=== PATIENT | male | born 1960 | race Caucasian/White ===

== ENCOUNTER 2017-03-09 04:00 | Inpatient (IN) | payer MEDICAID ==
[~2017-03-09] VITALS: Ht 167.6 cm; Wt 77.1 kg
[2017-03-09 06:56] LABS: CALCIUM 7.6 mg/dL (8.5-10.1); CARBON DIOXIDE 27.3 mmol/L (21-32); CHLORIDE SERUM 105 mmol/L (98-107); CREATININE SERUM 0.8 mg/dL (0.7-1.3); GFR1 > 60 mL/min; GLUCOSE SERUM 97 mg/dL (74-106); POTASSIUM SERUM 3.8 mmol/L (3.5-5.1); SODIUM SERUM 143 mmol/L (136-145)
[2017-03-09 07:03] LABS: AMPHETAMINE QUAL UR NONE DETECTED (NEG <=1000)
[2017-03-09 07:08] LABS: ALBUMIN 3.7 g/dL (3.4-5.0); ALKALINE PHOSPHATASE 89 U/L (46-116); ALT/SGPT 48 U/L (16-63); AST/SGOT 39 U/L (15-37); BILIRUBIN TOTAL 0.3 mg/dL (0.20-1.00); LIPASE 524 IU/L (73-393); TOTAL PROTEIN, SERUM 7.3 g/dL (6.4-8.2)
[2017-03-09 07:10] LABS: BASOPHIL % 0.5 % (0-2); PLATELET COUNT 221 x10^3mcL (130-400); RED CELL DISTRIBUTION WIDTH 13.7 % (11.5-14.5)
[2017-03-09] MEDS ORDERED: MENS MULTIVITAMIN (07:58)
[2017-03-09 08:16] LABS: microscopic required? NO
[2017-03-09 08:24] LABS: MAGNESIUM 2.1 mg/dL (1.8-2.4)
[2017-03-09 08:25] LABS: CHOLESTEROL/HDL RATIO 2.6
[2017-03-09 08:29] LABS: UA SPECIFIC GRAVITY <=1.005 (1.005-1.035); urine erythrocyte NEGATIVE (NEGATIVE)
[2017-03-09 08:30] LABS: T3 TOTAL 0.94 ng/mL
[2017-03-09 08:34] LABS: FREE T4 0.79 ng/dL (0.76-1.46); FREE THYROXINE INDEX 2.9 ug/dL (1.4-4.5); T4(THYROXINE) 7.4 ug/dL (4.7-13.3)
[2017-03-09 14:18] VITALS: BP 140/84
[2017-03-09 18:09] VITALS: BP 145/87
[2017-03-09 19:28] VITALS: BP 150/77
[2017-03-09 21:58] VITALS: BP 150/82
[2017-03-10 05:46] VITALS: BP 155/100
[2017-03-10 05:58] LABS: BASOPHIL % 0.3 % (0-2); PLATELET COUNT 182 x10^3mcL (130-400); RED CELL DISTRIBUTION WIDTH 14.2 % (11.5-14.5)
[2017-03-10 06:27] LABS: CALCIUM 7.9 mg/dL (8.5-10.1); CARBON DIOXIDE 23.1 mmol/L (21-32); CHLORIDE SERUM 99 mmol/L (98-107); CREATININE SERUM 0.8 mg/dL (0.7-1.3); GFR1 > 60 mL/min; GLUCOSE SERUM 119 mg/dL (74-106); POTASSIUM SERUM 3.7 mmol/L (3.5-5.1); SODIUM SERUM 134 mmol/L (136-145)
[2017-03-10 06:43] VITALS: BP 154/87
[2017-03-10 08:10] LABS: AMYLASE 90 U/L (25-115); LIPASE 562 IU/L (73-393)
[2017-03-10 10:15] VITALS: BP 141/105
[2017-03-10 13:30] VITALS: BP 135/96
[2017-03-10 17:40] VITALS: BP 146/86
[2017-03-10 20:51] VITALS: BP 137/86
[2017-03-11 05:54] VITALS: BP 132/81
[2017-03-11 06:17] LABS: BASOPHIL % 0.1 % (0-2); PLATELET COUNT 143 x10^3mcL (130-400); RED CELL DISTRIBUTION WIDTH 13.9 % (11.5-14.5)
[2017-03-11 06:28] LABS: CALCIUM 8.2 mg/dL (8.5-10.1); CARBON DIOXIDE 24.7 mmol/L (21-32); CHLORIDE SERUM 98 mmol/L (98-107); CREATININE SERUM 0.9 mg/dL (0.7-1.3); GFR1 > 60 mL/min; GLUCOSE SERUM 94 mg/dL (74-106); POTASSIUM SERUM 3.1 mmol/L (3.5-5.1); SODIUM SERUM 134 mmol/L (136-145)
[2017-03-11 10:16] VITALS: BP 134/78
[2017-03-11 15:00] VITALS: BP 137/80
[2017-03-11 18:10] VITALS: BP 121/70
[2017-03-11 21:31] VITALS: BP 116/73
[2017-03-12 05:32] VITALS: BP 130/74
[2017-03-12 06:36] LABS: BASOPHIL % 0.3 % (0-2); PLATELET COUNT 131 x10^3mcL (130-400); RED CELL DISTRIBUTION WIDTH 13.7 % (11.5-14.5)
[2017-03-12 06:55] LABS: CALCIUM 8.5 mg/dL (8.5-10.1); CARBON DIOXIDE 23.4 mmol/L (21-32); CHLORIDE SERUM 105 mmol/L (98-107); CREATININE SERUM 0.8 mg/dL (0.7-1.3); GFR1 > 60 mL/min; GLUCOSE SERUM 105 mg/dL (74-106); POTASSIUM SERUM 3.5 mmol/L (3.5-5.1); SODIUM SERUM 138 mmol/L (136-145)
[2017-03-12 09:16] VITALS: BP 115/46
[2017-03-12 14:33] VITALS: BP 122/61
[2017-03-12 16:27] VITALS: BP 123/82
[2017-03-12 19:40] VITALS: BP 122/81
[2017-03-12 20:26] VITALS: BP 131/80
[2017-03-13 05:20] VITALS: BP 110/80
[2017-03-13 06:21] LABS: BASOPHIL % 0.3 % (0-2); PLATELET COUNT 148 x10^3mcL (130-400); RED CELL DISTRIBUTION WIDTH 13.8 % (11.5-14.5)
[2017-03-13 06:29] LABS: CALCIUM 8.6 mg/dL (8.5-10.1); CHLORIDE SERUM 105 mmol/L (98-107); CREATININE SERUM 0.8 mg/dL (0.7-1.3); GFR1 > 60 mL/min; GLUCOSE SERUM 86 mg/dL (74-106); POTASSIUM SERUM 3.7 mmol/L (3.5-5.1); SODIUM SERUM 141 mmol/L (136-145)
[2017-03-13 09:29] VITALS: BP 137/81
[2017-03-13] MEDS ORDERED: ATI1 PO (13:48)
[2017-03-13 13:50] VITALS: BP 140/79
[2017-03-13] MEDS ORDERED: PROTONIX20 MG PO (13:53)
[2017-03-13] MEDS ORDERED: ZOF4 PO (13:56)
[2017-03-13] MEDS ORDERED: METP PO (13:57)
[2017-03-13 14:04] VITALS: BP 140/79
[2017-03-13] MEDS ORDERED: THERA TABS1 TAB PO (14:05)
[2017-03-13] MEDS ORDERED: THE MEDICINE S500 M1 PO (14:09)
== END 2017-03-13 14:54 | disposition home or self-care (01) | DRG 775 ==
LOC: ED 04:00 → DU 07:43
PROVIDERS: Emergency Medicine; Family Medicine Sports Medicine; ADMIT Family Medicine
DX: F10.229 Alcohol dependence with intoxication, unspecified (principal); G92 Toxic encephalopathy; K85.20 Alcohol induced acute pancreatitis without necrosis or infection; K86.0 Alcohol-induced chronic pancreatitis; K21.9 Gastro-esophageal reflux disease without esophagitis; D64.9 Anemia, unspecified; E78.1 Pure hyperglyceridemia; R74.0 Nonspecific elevation of levels of transaminase and lactic acid dehydrogenase [LDH]; F41.9 Anxiety disorder, unspecified; T51.0X1A Toxic effect of ethanol, accidental (unintentional), initial encounter; Z68.25 Body mass index [BMI] 25.0-25.9, adult
CPT/HCPCS: 84439; 90658; 90732; G0480; J0696; J1885; J2060; J2405; J3010; J3411; J3475; J3490; J7030; Q0092; Q9967

== ENCOUNTER 2017-03-16 14:20 | Emergency (ER) | payer MEDICAID ==
[~2017-03-16] VITALS: Ht 167.6 cm; Wt 80.0 kg
[~2017-03-16 14:20] MED LIST: ATI1 PO; MENS MULTIVITAMIN; METP PO; PROTONIX20 MG PO; THE MEDICINE S500 M1 PO; THERA TABS1 TAB PO; ZOF4 PO
[2017-03-16 17:05] LABS: BASOPHIL % 0.4 % (0-2); PLATELET COUNT 352 x10^3mcL (130-400)
[2017-03-16 17:17] LABS: CALCIUM 8.6 mg/dL (8.5-10.1); CARBON DIOXIDE 27.6 mmol/L (21-32); CHLORIDE SERUM 109 mmol/L (98-107); CREATININE SERUM 0.8 mg/dL (0.7-1.3); GFR1 > 60 mL/min; GLUCOSE SERUM 108 mg/dL (74-106); POTASSIUM SERUM 3.3 mmol/L (3.5-5.1); SODIUM SERUM 145 mmol/L (136-145)
[2017-03-16 17:21] LABS: ALBUMIN 3.4 g/dL (3.4-5.0); ALKALINE PHOSPHATASE 68 U/L (46-116); ALT/SGPT 78 U/L (16-63); AST/SGOT 36 U/L (15-37); BILIRUBIN TOTAL 0.15 mg/dL (0.20-1.00); CHOLESTEROL 173 mg/dL (<200); HDL CHOLESTEROL 33 mg/dL (40-60); LIPASE 656 IU/L (73-393); TOTAL PROTEIN, SERUM 7.4 g/dL (6.4-8.2)
[2017-03-16 19:57] VITALS: BP 144/77
== END 2017-03-16 19:57 | disposition home or self-care (01) ==
LOC: ED 14:20
PROVIDERS: Emergency Medicine
DX: J98.01 Acute bronchospasm (principal); K85.20 Alcohol induced acute pancreatitis without necrosis or infection
CPT/HCPCS: 83880; J2405; J7030; J7613; Q0092

== ENCOUNTER 2017-05-16 17:13 | Emergency (ER) | payer MEDICAID ==
[2017-05-16 18:42] LABS: BASOPHIL % 0.2 % (0-2); PLATELET COUNT 283 x10^3mcL (130-400); RED CELL DISTRIBUTION WIDTH 13.9 % (11.5-14.5)
[2017-05-16 18:54] LABS: CALCIUM 8.3 mg/dL (8.5-10.1); CARBON DIOXIDE 26.6 mmol/L (21-32); CHLORIDE SERUM 92 mmol/L (98-107); CREATININE SERUM 0.9 mg/dL (0.7-1.3); GFR1 > 60 mL/min; GLUCOSE SERUM 107 mg/dL (74-106); POTASSIUM SERUM 4.1 mmol/L (3.5-5.1); SODIUM SERUM 130 mmol/L (136-145)
[2017-05-16 19:05] LABS: ALBUMIN 4.1 g/dL (3.4-5.0); ALKALINE PHOSPHATASE 92 U/L (46-116); ALT/SGPT 45 U/L (16-63); AST/SGOT 34 U/L (15-37); BILIRUBIN TOTAL 0.2 mg/dL (0.20-1.00); CHOLESTEROL 176 mg/dL (<200); CHOLESTEROL/HDL RATIO 2.9; HDL CHOLESTEROL 60 mg/dL (40-60); LIPASE 233 IU/L (73-393); TOTAL PROTEIN, SERUM 7.8 g/dL (6.4-8.2)
[2017-05-16 19:07] LABS: TRIGLYCERIDES 258 mg/dL (<150)
[2017-05-16 19:10] LABS: T3 TOTAL 0.84 ng/mL
[2017-05-16 19:32] LABS: microscopic required? NO
[2017-05-16 19:41] LABS: FREE T4 0.97 ng/dL (0.76-1.46); FREE THYROXINE INDEX 2.9 ug/dL (1.4-4.5); T4(THYROXINE) 7.5 ug/dL (4.7-13.3)
[2017-05-16 19:46] VITALS: BP 153/86
[2017-05-16 20:42] LABS: UA SPECIFIC GRAVITY <=1.005 (1.005-1.035); urine erythrocyte NEGATIVE (NEGATIVE)
[2017-05-16 20:55] LABS: AMPHETAMINE QUAL UR NONE DETECTED (NEG <=1000)
== END 2017-05-16 19:46 | disposition home or self-care (01) ==
LOC: ED 17:13
PROVIDERS: Specialist
DX: F10.229 Alcohol dependence with intoxication, unspecified (principal); R10.13 Epigastric pain
CPT/HCPCS: 83880; 84439; G0480; J2405; J3010; J3411; J3475; J3490; J7030

== ENCOUNTER 2017-05-19 10:27 | Emergency (ER) | payer MEDICAID ==
[~2017-05-19] VITALS: Ht 167.6 cm; Wt 72.6 kg
[2017-05-19 10:33] VITALS: Ht 167.6 cm; Wt 72.6 kg
[2017-05-19 13:48] VITALS: BP 129/81
== END 2017-05-19 14:23 | disposition home or self-care (01) ==
LOC: ED 10:27
DX: F10.129 Alcohol abuse with intoxication, unspecified (principal); M25.512 Pain in left shoulder; F41.9 Anxiety disorder, unspecified
CPT/HCPCS: Q0092

== ENCOUNTER 2018-01-06 15:15 | Inpatient (IN) | payer MEDICAID ==
[~2018-01-06] VITALS: Ht 167.6 cm; Wt 76.9 kg
[2018-01-06 15:25] VITALS: Ht 167.6 cm; Wt 76.9 kg
[2018-01-06 17:09] LABS: BASOPHIL % 1.2 % (0-2); PLATELET COUNT 291 x10^3mcL (130-400)
[2018-01-06 17:17] LABS: CALCIUM 8.3 mg/dL (8.5-10.1); CARBON DIOXIDE 16.5 mmol/L (21-32); CHLORIDE SERUM 96 mmol/L (98-107); CREATININE SERUM 0.8 mg/dL (0.7-1.3); GFR1 > 60 mL/min; GLUCOSE SERUM 85 mg/dL (74-106); POTASSIUM SERUM 3.9 mmol/L (3.5-5.1); RED CELL DISTRIBUTION WIDTH 14.8 % (11.5-14.5); SODIUM SERUM 135 mmol/L (136-145)
[2018-01-06 17:35] LABS: ALKALINE PHOSPHATASE 106 U/L (46-116); ALT/SGPT 32 U/L (16-63); AST/SGOT 24 U/L (15-37); BILIRUBIN TOTAL 0.43 mg/dL (0.20-1.00); LIPASE 256 IU/L (73-393); TOTAL PROTEIN, SERUM 7.4 g/dL (6.4-8.2)
[2018-01-06 17:45] LABS: microscopic required? NO
[2018-01-06 17:52] LABS: UA SPECIFIC GRAVITY <=1.005 (1.005-1.035); urine erythrocyte NEGATIVE (NEGATIVE)
[2018-01-06 20:40] LABS: AMPHETAMINE QUAL UR NONE DETECTED (See below)
[2018-01-06 20:41] LABS: CHOLESTEROL/HDL RATIO 3.5; MAGNESIUM 1.9 mg/dL (1.8-2.4); PHOSPHOROUS 3.4 mg/dL (2.5-4.9)
[2018-01-06 20:44] VITALS: BP 154/85
[2018-01-07 05:30] VITALS: BP 133/76
[2018-01-07 07:09] LABS: BASOPHIL % 0.3 % (0-2); PLATELET COUNT 256 x10^3mcL (130-400); RED CELL DISTRIBUTION WIDTH 15.1 % (11.5-14.5)
[2018-01-07 07:20] LABS: CARBON DIOXIDE 20.8 mmol/L (21-32); CHLORIDE SERUM 102 mmol/L (98-107); CREATININE SERUM 0.8 mg/dL (0.7-1.3); GFR1 > 60 mL/min; POTASSIUM SERUM 3.9 mmol/L (3.5-5.1); SODIUM SERUM 139 mmol/L (136-145)
[2018-01-07 07:38] LABS: GLUCOSE SERUM 58 mg/dL (74-106)
[2018-01-07 08:31] VITALS: BP 149/93
[2018-01-07 15:44] VITALS: BP 150/93
[2018-01-07 16:59] VITALS: BP 149/86
[2018-01-07 20:23] VITALS: BP 156/96
[2018-01-08 05:41] VITALS: BP 153/95
[2018-01-08 06:26] LABS: BASOPHIL % 0.4 % (0-2); PLATELET COUNT 223 x10^3mcL (130-400)
[2018-01-08 06:28] LABS: CALCIUM 8.8 mg/dL (8.5-10.1); CARBON DIOXIDE 27.9 mmol/L (21-32); CHLORIDE SERUM 102 mmol/L (98-107); CREATININE SERUM 0.7 mg/dL (0.7-1.3); GFR1 > 60 mL/min; GLUCOSE SERUM 95 mg/dL (74-106); PHOSPHOROUS 3.1 mg/dL (2.5-4.9); POTASSIUM SERUM 3.4 mmol/L (3.5-5.1); SODIUM SERUM 139 mmol/L (136-145)
[2018-01-08 08:39] VITALS: BP 145/83
== END 2018-01-08 13:25 | disposition left against medical advice (07) | DRG 241 ==
LOC: ED 15:15 → MU 19:46
PROVIDERS: Emergency Medicine; Internal Medicine
DX: K29.20 Alcoholic gastritis without bleeding (principal); G92 Toxic encephalopathy; E87.2 Acidosis; E83.51 Hypocalcemia; K56.7 Ileus, unspecified; T51.0X1A Toxic effect of ethanol, accidental (unintentional), initial encounter; F10.229 Alcohol dependence with intoxication, unspecified; E87.6 Hypokalemia; F41.9 Anxiety disorder, unspecified; D63.8 Anemia in other chronic diseases classified elsewhere; E78.5 Hyperlipidemia, unspecified; Z86.11 Personal history of tuberculosis; Z68.24 Body mass index [BMI] 24.0-24.9, adult; Z87.891 Personal history of nicotine dependence; Z53.29 Procedure and treatment not carried out because of patient's decision for other reasons; Y90.8 Blood alcohol level of 240 mg/100 ml or more; Y92.009 Unspecified place in unspecified non-institutional (private) residence as the place of occurrence of the external cause
CPT/HCPCS: 36600; 82962; 83880; C9113; G0480; J2060; J2270; J2765; J7030; Q0092